=== PATIENT | male | born 1960 | race Caucasian/White ===

== ENCOUNTER 2017-03-01 19:00 | Inpatient (IN) | payer SELFPAY ==
[2017-03-01] MEDS ORDERED: ONDANSETRON 2MG/ML, 2ML ONE (19:33)
[2017-03-01] MEDS ORDERED: ASPIRIN 81 MG TABLET CHEW ONE (19:33)
[2017-03-01] MEDS ORDERED: MORPHINE SULFATE 4 MG/ML, 1ML ONE (19:33)
[2017-03-01] MEDS ORDERED: LORazepam 2 MG/ML, 1ML ONE (19:34)
[2017-03-01] MEDS ORDERED: ONDANSETRON 2MG/ML, 2ML IV PRN (23:00)
[2017-03-01] MEDS ORDERED: NICOTINE 21 MG/24 HR PATCH.TD24 TD SCH (23:40)
[2017-03-01] MEDS ORDERED: morphine SULFATE 10 MG/ML, 1ML IV PRN (23:40)
[2017-03-02] MEDS ORDERED: ASPIRIN 81 MG TABLET EC PO SCH (06:00)
[2017-03-02 06:55] VITALS: BP 138/70
[2017-03-02] MEDS ORDERED: LORazepam 2 MG/ML, 1ML ONE ×2 (08:11→15:30)
[2017-03-02] MEDS: LORazepam 2 MG/ML, 1ML IV PRN ×2 (08:25→15:45)
[2017-03-02] MEDS ORDERED: REGADENOSON 0.4 MG/5 ML SYRINGE ONE (09:37)
[2017-03-02 13:15] VITALS: BP 153/93
[2017-03-02] MEDS ORDERED: NITROGLYCERIN 0.4 MG BOTTLE (25 TABS) SL PRN (16:00)
[2017-03-02] MEDS ORDERED: ONDANSETRON 2MG/ML, 2ML IV PRN (16:00)
[2017-03-02] MEDS ORDERED: NICOTINE 21 MG/24 HR PATCH.TD24 TD SCH (16:00)
[2017-03-02] MEDS ORDERED: LORazepam 2 MG/ML, 1ML IV PRN (16:00)
[2017-03-02] MEDS ORDERED: ASPI-621 PO (17:15)
[2017-03-02] MEDS ORDERED: SODIUM CHLORIDE FLUSH 3ML SYRINGE IVF SCH (21:00)
[2017-03-04 16:11] LABS: IS PT STATUS REG ER OR PRE ER? NO
[2017-03-04 16:26] LABS: IS PT STATUS REG ER OR PRE ER? NO
[2017-03-04 16:34] LABS: ASPARTATE AMINO TRANSFERASE 19 U/L (15-37); BLOOD UREA NITROGEN 9 mg/dL (7-18); IS PT STATUS REG ER OR PRE ER? YES
== END 2017-03-02 19:55 | disposition home or self-care (01) | DRG 206 ==
LOC: ED 19:00 → 5SO 23:40
PROVIDERS: ADMIT Internal Medicine; ATTEND Internal Medicine
DX: M94.0 Chondrocostal junction syndrome [Tietze] (principal); F10.221 Alcohol dependence with intoxication delirium; F10.231 Alcohol dependence with withdrawal delirium; F17.210 Nicotine dependence, cigarettes, uncomplicated; I10 Essential (primary) hypertension; I25.119 Atherosclerotic heart disease of native coronary artery with unspecified angina pectoris; I45.10 Unspecified right bundle-branch block; Z66 Do not resuscitate; Z80.9 Family history of malignant neoplasm, unspecified; Z88.5 Allergy status to narcotic agent
CPT/HCPCS: 36415; 71010; 78452; 80053; 80307; 82248; 83690; 84484; 85025; 85610; 85730; 93005; 93017; 99285; J2785; A9502; C9898; J2060

== ENCOUNTER 2018-03-04 14:39 | Emergency (ER) | payer SELFPAY ==
[~2018-03-04] VITALS: Ht 185.4 cm; Wt 78.0 kg
[~2018-03-04 14:39] MED LIST: ASPI-621 PO
[2018-03-04 14:49] VITALS: BP 128/89
== END 2018-03-04 15:53 | disposition home or self-care (01) ==
LOC: ED 14:45
DX: F10.229 Alcohol dependence with intoxication, unspecified (principal); F17.200 Nicotine dependence, unspecified, uncomplicated
CPT/HCPCS: 99283